=== PATIENT | female | born 1950 | race Two or more races ===

== ENCOUNTER 2022-08-22 20:36 | Emergency (ER) | payer OTHER ==
[~2022-08-22] VITALS: Ht 167.6 cm; Wt 65.9 kg
[2022-08-22] MEDS ORDERED: EPINEPHrine HCL 1 MG/10 ML SYRG IV ONE (20:37)
[2022-08-22] MEDS ORDERED: ATROPINE SULF 1 MG/10ml SYR IM ONE (20:37)
[2022-08-22] MEDS ORDERED: MAGNESIUM SULF 50% 40 MEQ/10 ML VL IV ONE (20:37)
[2022-08-22] MEDS ORDERED: SODIUM BICARBONATE 8.4% INJ 50ML SYRINGE IV ONE (20:37)
[2022-08-22] MEDS ORDERED: AMIODARONE 150mg/D5W 100ml AE (BOLUS) IV ONE (20:37)
[2022-08-22 20:44] VITALS: PULSE 0; RESP 0; O2SAT 0
[2022-08-22] MEDS ORDERED: NOREPINEPHRINE 8 MG/250ML KIT 250 ML IV ONE (20:48)
[2022-08-22 20:52] VITALS: BP 52/15
[2022-08-22] MEDS ORDERED: NOREPINEPHRINE 8 MG/250ML KIT 250 ML IV SCH (22:00)
== END 2022-08-22 21:45 ==
LOC: ER 20:36 → EDBD 20:36 → ER 21:45
DX: I46.9 Cardiac arrest, cause unspecified (principal); R94.31 Abnormal electrocardiogram [ECG] [EKG]
CPT/HCPCS: 92950; 93005; 99291; J0171; J3475